=== PATIENT | female | born 1985 | race Caucasian/White ===

== ENCOUNTER 2018-10-31 12:11 | Outpatient (CLI) | payer OTHER ==
[~2018-10-31] VITALS: Ht 167.6 cm; Wt 80.5 kg
[~2018-10-31 12:11] MED LIST: PREN-93 PO
[2018-10-31 12:27] VITALS: BP 114/69; PULSE 137; RESP 18; Ht 167.6 cm; Wt 80.5 kg
[2018-10-31] MEDS ORDERED: BETAMET NA PHOS/AC(6 MG/ML) 2 ML INJ SYG IM ONE (13:30)
== END 2018-10-31 15:00 | disposition home or self-care (01) ==
LOC: OBT 12:11 → L-D 12:14 → OBT 15:00
PROVIDERS: ATTEND Obstetrics & Gynecology
DX: O60.03 Preterm labor without delivery, third trimester (principal); Z3A.35 35 weeks gestation of pregnancy
CPT/HCPCS: 76815; 76818; J0702; Z7500; G0463